=== PATIENT | female | born 1960 | race Caucasian/White ===

== ENCOUNTER 2016-08-21 15:20 | Emergency (ER) | payer OTHER ==
[~2016-08-21] VITALS: Ht 172.7 cm; Wt 78.5 kg
--- NOTE | 2016-08-21 16:18 | ED HEADACHE COMPLAINT ---
History of Present Illness General Chief Complaint: Headache Stated Complaint: SIB DR HDEZ, FOR MIGRAINES HEADACHES Source: patient Exam Limitations: no limitations Vital Signs & Intake/Output Vital Signs & Intake/Output Vital Signs Date Time Temp Pulse Resp B/P Pulse O2 O2 Flow FiO2 Ox Delivery Rate 08/21 1756 96.8 60 16 153/91 98 Room Air 08/21 1745 97 Room Air 08/21 1529 97.8 66 20 143/86 97 Room Air Allergies Coded Allergies: No Known Allergies (08/21/16) Reconcile Medications Atenolol 25 MG TABLET 1 TAB PO DAILY HIGH BLOOD PRESSURE (Reported) Butalb/Acetaminophen/Caffeine (Fioricet 50-300-40 MG Capsule) 50 MG-300 MG-40 MG CAPSULE 1-2 TAB PO Q6P PRN HEADACHE Naproxen (Naprosyn) 500 MG TABLET 1 TAB PO BID HEADACHE Verapamil HCl (Verapamil ER) 240 MG CAP24H.PEL 1 CAP PO DAILY HIGH BLOOD PRESSURE (Reported) Triage Note: TRIAGE: PT TO ER C/C MIGRAINE HEADACHES X 4 SINCE 08/15/2016. TODAYS HEADACHE ONSET 11 AM, CONSTANT SINCE ONSET. DESCRIBES DULL, ACHE. SENT IN BY MAVIS HDEZ FROM DR COLON OFFICE. PT WITH HX OF MIGRAINES BUT STATES THIS IS DIFFERENT IN INCREASED FRUENCY, MORE SEVERE, NOT RELIEVED BY USUAL MEANS. ALSO REPORTS DIFFICULTY RETRIEVING WORDS. Triage Nurses Notes Reviewed? yes Onset: Abrupt Duration: week(s): (1), constant, continues in ED Timing: recent history HPI: 55-year-old female comes in with persistent migraine headache that she's been complaining of for the past week. Patient has a history of migraine headaches that was diagnosed when she was very young. Patient reports that she does not get them very often but recently started with one last week that has been persistent. Patient has tried [id number] medication with no relief. Patient reports that she has a sharp throbbing pain. Associated visual changes which occurs with her previous migraines and some inability to retrieve words as she describes it. Denies any vomiting. Denies any fever chills neck pain. Denies any other associated symptoms. (ANTONETTE WHITTEN,ELISHA) Past History Travel History Traveled to [place] past 21 day No Medical History Any Pertinent Medical History? see below for history Neurological: migraine EENT: NONE Cardiovascular: hypertension, hyperlipidemia Respiratory: NONE Gastrointestinal: NONE Hepatic: cholelithiasis Renal: NONE Musculoskeletal: NONE Psychiatric: NONE Endocrine: NONE Blood Disorders: NONE Cancer(s): NONE COSMETIC SALES ASSISTANT/Reproductive: NONE Surgical History Surgical History: non-contributory Psychosocial History What is your primary language Icelandic Tobacco Use: Never used ETOH Use: occasional use Illicit Drug Use: denies illicit drug use Family History Hx Contributory? No (ELISHA MAS) Review of Systems Review of Systems Constitutional: Reports: no symptoms. Eyes: Reports: no symptoms. Ears, Nose, Throat, Mouth: Reports: no symptoms. Respiratory: Reports: no symptoms. Cardiovascular: Reports: no symptoms. Gastrointestinal/Abdominal: Reports: no symptoms. Genitourinary: Reports: no symptoms. Musculoskeletal: Reports: see HPI. Skin: Reports: no symptoms. Neurological/Psychological: Reports: see HPI. Hematologic/Endocrine: Reports: no symptoms. Endocrine: Reports: no symptoms. Immunologic/Allergic: Reports: no symptoms. All Other Systems: Reviewed and Negative (ELISHA MAS) Physical Exam Physical Exam General Appearance: well developed/nourished, no apparent distress, alert, awake Head: atraumatic, normal appearance Eyes: Bilateral: normal appearance, PERRL, EOMI. Ears, Nose, Throat: normal pharynx, normal ENT inspection, hearing grossly normal Neck: normal inspection, supple, full range of motion Respiratory: normal breath sounds, chest non-tender, no respiratory distress Cardiovascular: regular rate/rhythm Gastrointestinal: soft Back: normal inspection Extremities: normal inspection, normal range of motion Psychiatric: awake, alert, oriented x 3 Cranial Nerves: normal hearing, normal speech, PERRL Coordination/Gait: normal gait Motor/Sensory: no motor/sensory deficits Skin: intact, normal color Core Measures Severe Sepsis Present: No Septic Shock Present: No (ELISHA MAS) Progress Differential Diagnosis: carotid dissection, cav sinus thromb, cluster CONLEY, encephalitis, IC mass/tumor, intracranial Hem., meningitis, migraine CONLEY, musculoskeletal pain, sinusitis, SSS thrombosis, subarach. Hem., tension CONLEY, temporal arteritis, TMJ syndrome, viral cephalgia Plan of Care: Current Medications Sig/Cj Start time Last Medication Dose Stop Time Status Admin Diphenhydramine HCl 25 MG ONCE ONE 08/21 1644 UNVr (Benadryl) 08/21 1645 Ketorolac 30 MG ONCE ONE 08/21 1644 UNVr Tromethamine 08/21 1645 (Toradol) Morphine Sulfate 4 MG ONCE ONE 08/21 1644 UNVr (Morphine) 08/21 1645 Diagnostic Imaging: Viewed by Me: CT Scan. Discussed w/RAD: CT Scan. Radiology Impression: SERVICE DATE: 08/21/16 EXAM TYPE: CAT - CT HEAD WO IV CONTRAST EXAMINATION: CT HEAD WITHOUT CONTRAST CLINICAL INFORMATION: Headache for 4 days COMPARISON: None TECHNIQUE: Contiguous axial imaging was performed from the skull base to vertex without intravenous administration of contrast. DLP: 600.71 mGy-cm FINDINGS: There is no evidence of acute intracranial hemorrhage or territorial infarction. No abnormal mass effect or midline shift is seen. Michael to white matter differentiation is well preserved. No extra-axial fluid collections are identified. The ventricles are normal in size. There is no abnormal attenuation within the brain parenchyma. The osseous structures and soft tissues are normal. The mastoid air cells and visualized portions of the paranasal sinuses are well aerated. IMPRESSION: No acute intracranial pathology. DICTATED BY: MALLORIE BELL MD DATE/TIME DICTATED:08/21/161629 COMMUNICATIONS EXECUTIVE :RIGOBERTO DATE/TIME TRANSCRIBED:08/21/161629 Comments: 08/21/2016 6:17:10 PM Patient clinically looks well. Nontoxic-appearing. In no apparent distress. Headache is consistent with previous migraines. CAT scan shows no acute findings. Patient feels better after medications are emergency room. Referred to neurology. Return if any other concerns. 08/21/2016 7:20:08 PM Upon discharge the patient she was complaining of some epigastric pain. Patient reports that this is been a chronic issue for her. She does not want to be further evaluated with lab work or diagnostic imaging. She will follow-up with her regular doctor. (ELISHA MAS) Departure Departure Disposition: HOME OR SELF CARE Condition: Stable Clinical Impression Primary Impression: Migraine headache Referrals: GENEVA SMALL,JERE GERARDO APRN (PCP/Family) Additional Instructions: Take Fioricet and Naprosyn as prescribed. Follow-up with neurologist provided. Return if any other concerns worsening symptoms. Please go over all results of today's visit with your primary care doctor. Contact your primary care doctor to let them know you were here in the emergency room. There may be nonspecific findings which may not be related to your visit today here in the emergency room but may require further evaluation and chronic monitoring by your primary care doctor. If you had a laceration today the chance of foreign body always remains. You should follow-up with your primary care doctor for recheck in 3-5 days for a wound check. If you had an x-ray done there is a chance that a fracture could have been missed on initial read and you should follow-up with your primary care doctor for repeat x-rays if symptoms persist. If your blood pressure was elevated here in the emergency room please have rechecked by her primary care doctor within the next 48 hours by your primary care doctor. If you were prescribed a narcotic here in the emergency room or any type of controlled substances you're not allowed to drive while taking this medication or operate any type of heavy machinery. Narcotics can make you feel lightheaded dizziness nausea and can cause constipation. You may need to seed cone picker a stool softener. Thank you for choosing [facility] emergency room. Please return to the emergency room immediately if you have any other concerns worsening of symptoms. Departure Forms: Customer Survey General Discharge Information Prescriptions: Current Visit Scripts Butalb/Acetaminophen/Caffeine (Fioricet 50-300-40 MG Capsule) 1-2 TAB PO Q6P PRN HEADACHE #20 MG Naproxen (Naprosyn) 1 TAB PO BID #30 TAB (ELISHA MAS) PA/AFTER SCHOOL COORDINATOR Co-Sign Statement Statement: ED Attending supervision documentation- [] I saw and evaluated the patient. I have also reviewed all the pertinent lab results and diagnostic results. I agree with the findings and the plan of care as documented in the PA's/AFTER SCHOOL COORDINATOR's documentation. [x] I have reviewed the ED Record and agree with the PA's/AFTER SCHOOL COORDINATOR's documentation. [] Additions or exceptions (if any) to the PAs/AFTER SCHOOL COORDINATOR's note and plan are summarized below: [] (RUPAL SMALL,ZULEYKA)
--- NOTE | 2016-08-21 16:34 | CT SCAN REPORT ---
EXAMINATION: CT HEAD WITHOUT CONTRAST CLINICAL INFORMATION: Headache for 4 days COMPARISON: None TECHNIQUE: Contiguous axial imaging was performed from the skull base to vertex without intravenous administration of contrast. DLP: 600.71 mGy-cm FINDINGS: There is no evidence of acute intracranial hemorrhage or territorial infarction. No abnormal mass effect or midline shift is seen. Michael to white matter differentiation is well preserved. No extra-axial fluid collections are identified. The ventricles are normal in size. There is no abnormal attenuation within the brain parenchyma. The osseous structures and soft tissues are normal. The mastoid air cells and visualized portions of the paranasal sinuses are well aerated. IMPRESSION: No acute intracranial pathology.
[2016-08-21] MEDS ORDERED: FIORICET 50-301 EACH PO (18:10)
[2016-08-21] MEDS ORDERED: NAPROSYN500 M1 PO (18:11)
[2016-08-21] MEDS ORDERED: VERAPAMIL ER240 MG PO (18:39)
[2016-08-21] MEDS ORDERED: ATENOLOL25 M1 PO (18:39)
[2016-08-21 19:36] VITALS: BP 148/65
== END 2016-08-21 19:38 ==
LOC: ERH 15:20
DX: G43.909 Migraine, unspecified, not intractable, without status migrainosus (principal)
CPT/HCPCS: 96372